=== PATIENT | female | born 1985 | race Caucasian/White ===

== ENCOUNTER 2020-07-02 21:19 | Emergency (ER) | payer MEDICAID ==
[~2020-07-02] VITALS: Ht 152.4 cm; Wt 70.0 kg
[2020-07-03] MEDS ORDERED: IBUPROFEN 600MG TABLET PO ONE (00:15)
[2020-07-03] MEDS ORDERED: IBUP-2029 MT (00:59)
[2020-07-03 01:24] VITALS: BP 140/76
== END 2020-07-03 01:25 | disposition home or self-care (01) ==
LOC: ER 21:19
DX: J02.9 Acute pharyngitis, unspecified (principal); Z98.890 Other specified postprocedural states
CPT/HCPCS: 81025; 99282

== ENCOUNTER 2021-11-03 02:54 | Emergency (ER) | payer MEDICAID ==
[~2021-11-03] VITALS: Ht 160 cm; Wt 55.0 kg
[~2021-11-03 02:54] MED LIST: IBUP-2029 MT
[2021-11-03] MEDS ORDERED: SODIUM CHLORIDE 0.9% 1,000 ML IV ONE (03:30)
[2021-11-03 04:00] LABS: BASOPHILS % 0.4 % (0.0-2.0); EOSINOPHILS % 0.2 % (0.0-5.0); HEMATOCRIT. 39.4 % (36.0-48.0); LYMPHOCYTES % 26.4 % (20.0-50.0); MEAN CORPUSCULAR HEMOGLOBIN 28.7 pg (28.0-32.0); MEAN CORPUSCULAR VOLUME 87.4 fL (81.0-99.0); MEAN PLATELET VOLUME 7.5 fl (7.4-10.4); MONOCYTES % 5.1 % (2.0-8.0); NEUTROPHILS % 67.9 % (40.0-76.0); PLATELET 283 x1000/uL (130-400); RED BLOOD CELL COUNT 4.51 mill/uL (4.2-5.4); RED CELL DISTRIBUTION WIDTH 13.3 % (11.6-14.6)
[2021-11-03 04:11] LABS: HCG SCREEN NEGATIVE
[2021-11-03 04:14] LABS: CHLORIDE 109 mEq/L (98-107)
[2021-11-03 04:23] LABS: ETHANOL BLOOD 113 mg/dL
[2021-11-03 09:50] VITALS: BP 109/69
== END 2021-11-03 09:50 | disposition home or self-care (01) ==
LOC: ER 02:54
DX: R07.89 Other chest pain (principal); F10.10 Alcohol abuse, uncomplicated; Y90.6 Blood alcohol level of 120-199 mg/100 ml
CPT/HCPCS: 36415; 71045; 80053; 80320; 84484; 84703; 85025; 93005; 96360; 99285; J7030; G0480